=== PATIENT | female | born 1940 | race Caucasian/White ===

== ENCOUNTER 2021-05-12 11:33 | Observation (INO) ==
[2021-05-12 15:53] LABS: ABS Lymphocytes 0.4 10^3/ul (1.0-4.8); ABS Monocytes 0.3 10^3/ul (0-0.8); ABS Neutrophils 3.3 10^3/ul (1.5-7.7); Eosinophil % 0.1 %; Hematocrit 42 % (35-47); Hemoglobin 14.7 g/dL (12.0-16.0); Lymphocyte % 10.4 %; Mean Corpuscular HGB Conc 35 g/dL (31-36); Mean Corpuscular Hemoglobin 29 pg (27-31); Mean Corpuscular Volume 83 fL (80-97); Mean Platelet Volume 7.8 fL (7.4-10.4); Nucleated Red Blood Cells % 0.1; Platelet Count 218 10^3/uL (150-450); Red Blood Count 5.14 10^6 /uL (3.70-4.87); Red Cell Distribution Width 14 % (10-15); White Blood Count 4.1 10^3/uL (3.5-10.8)
[2021-05-12 16:16] LABS: Albumin 3.6 g/dL (3.2-5.2); Albumin/Globulin Ratio 1.2 (1-3); C Reactive Protein 102.76 mg/L (<8.01); Globulin 3.1 g/dL (2-4); Magnesium 1.9 mg/dL (1.9-2.7); Potassium 3.7 mmol/L (3.5-5.0); Total Bilirubin 0.8 mg/dL (0.2-1.0); Total Protein 6.7 g/dL (6.4-8.9); eGFR CKD-EPI 90.2 (>60)
[2021-05-12 18:27] LABS: Urine Appearance Cloudy; Urine Bilirubin Negative (Negative); Urine Blood Negative (Negative); Urine Color Yellow; Urine Glucose Negative (Negative); Urine Ketones 1+ (Negative); Urine Nitrite Positive (Negative); Urine Protein 1+(30 mg/dL) (Negative); Urine Specific Gravity 1.013 (1.002-1.030); Urine Urobilinogen Negative (Negative)
[2021-05-12 18:31] LABS: Urine Bacteria 2+ (Absent); Urine Red Blood Cell Absent (Absent); Urine White Blood Cell 3+(>20/hpf) (Absent)
[2021-05-12] MEDS ORDERED: Lactated Ringers 1000 ml BAG 1,000 ML IV ONE (18:44)
[2021-05-12] MEDS ORDERED: NS 0.9% 1000 ml BAG 1,000 ML IV ONE (18:45)
[2021-05-12] MEDS ORDERED: cefTRIAXone 1 gm/50 mL NS BAG 1 GM/50 ML BAG IV ONE (18:45)
[2021-05-12] MEDS ORDERED: Azithromycin 500 mg/250 ml NS 500 MG/250 ML BAG IVPB ONE (18:48)
[2021-05-12 19:40] LABS: Troponin I 0.01 ng/mL (<0.03)
[2021-05-12] MEDS ORDERED: NS 0.9% 500 ml BAG 500 ML IV ONE (20:18)
[2021-05-12] MEDS ORDERED: NS 0.9% 1000 ml BAG 1,000 ML IV SCH (20:30)
[2021-05-12] MEDS ORDERED: Remdesivir 100 mg Vial 200 MG in NS 0.9% 250 ml 210 ML IV ONE (20:30)
[2021-05-12] MEDS ORDERED: Albuterol HFA INHALER 8 gm MDI INH PRN (22:18)
[2021-05-12] MEDS ORDERED: NS 0.9% 250 ml 250 ML ONE (23:30)
[2021-05-12] MEDS: Enoxaparin 40 MG/0.4 ML SYR SUBCUT SCH (23:33)
[2021-05-13 01:54] LABS: eGFR CKD-EPI 92.8 (>60)
[2021-05-13 02:06] LABS: Potassium 3.5 mmol/L (3.5-5.0)
[2021-05-13 05:43] LABS: ABS Lymphocytes 0.6 10^3/ul (1.0-4.8); ABS Monocytes 0.4 10^3/ul (0-0.8); Eosinophil % 0.2 %; Hematocrit 37 % (35-47); Hemoglobin 12.7 g/dL (12.0-16.0); Lymphocyte % 14.2 %; Mean Corpuscular HGB Conc 34 g/dL (31-36); Mean Corpuscular Hemoglobin 28 pg (27-31); Mean Corpuscular Volume 83 fL (80-97); Mean Platelet Volume 7.7 fL (7.4-10.4); Platelet Count 214 10^3/uL (150-450); Red Blood Count 4.49 10^6 /uL (3.70-4.87); Red Cell Distribution Width 14 % (10-15)
[2021-05-13 06:15] LABS: Albumin/Globulin Ratio 1.1 (1-3); Calcium 8.1 mg/dL (8.6-10.3); Globulin 2.7 g/dL (2-4); Potassium 3.4 mmol/L (3.5-5.0); Total Bilirubin 0.6 mg/dL (0.2-1.0); Total Protein 5.7 g/dL (6.4-8.9); eGFR CKD-EPI 97.8 (>60)
[2021-05-13 06:57] LABS: INR 1.4 (0.86-1.15)
[2021-05-13] MEDS ORDERED: NS 0.9% w/ 40 Meq KCL 1000 ML 1,000 ML IV SCH (12:00)
[2021-05-13] MEDS ORDERED: cefTRIAXone 1 gm/50 mL NS BAG 1 GM/50 ML BAG IVPB SCH (17:00)
[2021-05-13] MEDS ORDERED: Remdesivir 100 mg Vial 100 MG in NS 0.9% 250 ml 230 ML IV SCH (21:00)
[2021-05-14] MEDS: Enoxaparin 40 MG/0.4 ML SYR SUBCUT SCH (00:28)
[2021-05-14 05:32] LABS: INR 1.57 (0.86-1.15)
[2021-05-14 05:45] LABS: Albumin/Globulin Ratio 1.1 (1-3); Calcium 8.6 mg/dL (8.6-10.3); Globulin 2.8 g/dL (2-4); Potassium 3.9 mmol/L (3.5-5.0); Total Bilirubin 0.5 mg/dL (0.2-1.0); Total Protein 5.8 g/dL (6.4-8.9); eGFR CKD-EPI 98.9 (>60)
[2021-05-14 09:11] VITALS: BP 131/55
[2021-05-14] MEDS ORDERED: cefTRIAXone 1 gm/50 mL NS BAG 1 GM/50 ML BAG IVPB SCH (11:00)
== END 2021-05-14 14:00 | disposition home or self-care (01) ==
LOC: ED 11:33 → EDHOLD 11:33 → SUATTDRO 19:38 → MED 05-13 08:20
PROVIDERS: ADMIT Hospitalist; ATTEND Internal Medicine